=== PATIENT | male | born 1950 | race Caucasian/White ===

== ENCOUNTER 2018-08-30 20:17 | Emergency (ER) | payer MEDICARE ==
[2018-08-30] MEDS ORDERED: BABY ASPIRIN 81 MG CHEW PO ONE (20:34)
[2018-08-30] MEDS ORDERED: BABY ASPIRIN 81 MG CHEW ONE (20:38)
[2018-08-30 20:44] LABS: Hematocrit 37.6 % (42-50); Mean Corpuscular Hemoglobin 36.3 pg (26-32); Mean Corpuscular Hgb Concent. 34.6 g/dl (32-36); Mean Platelet Volume 10.4 fl (6-9.5); Platelet Count 183 K/mm3 (150-450); Red Blood Count 3.58 M/mm3 (4.1-5.6); Red Cell Distribution Width 14.4 % (11.5-14.0); White Blood Count 6.2 K/mm3 (4.0-10.5)
[2018-08-30 21:00] LABS: ALBUMIN 3.7 g/dL (3.5-5.0); ALKALINE PHOSPHATASE 109 U/L (38-126); AMYLASE 84 U/L (30-110); ANION GAP 13.7 MEQ/L (5-15); BLOOD UREA NITROGEN 12 mg/dL (9-20); CHLORIDE 101 mmol/L (98-107); Calcium 8.8 mg/dL (8.4-10.2); Carbon Dioxide 27 mmol/L (22-30); Creatinine 1 0.92 mg/dL (0.66-1.25); Glucose 107 mg/dL (74-106); LIPASE 163 U/L (23-300); Potassium 3.7 mmol/L (3.5-5.1); SGOT/AST 18 U/L (17-59); SGPT/ALT 20 U/L (0-50); SODIUM 137 mmol/L (137-145); Total Protein 6.9 g/dL (6.3-8.2)
--- NOTE | 2018-08-30 21:01 | ERPHSYRPT ---
- History of Present Illness Time Seen by Provider: 08/30/18 20:51 Historian: patient Exam Limitations: no limitations Patient Subjective Stated Complaint: Pt c/o substernal/epigastric cp x 2 days, worse when coughing and "getting up". denies cardiac hx. denies radiation of pain, denies nausea, dizziness, and diaphoresis Triage Nursing Assessment: [place]/warm/dry, resp easy, a&ox4, steady gait, ambulated to room per self without difficulty, no distress noted at this time, ekg done. Physician History: This is a 68-year-old white male with history of angina, asthma, high blood pressure, GERD, prostate problems, ulcerative colitis. Patient arrives with complaint of pain in the substernal region low in the substernal region symptoms going on for 2 days described as a pressure he states it is worse with coughing. He denies any nausea vomiting he is not short of breath he has no fevers she has not been otherwise ill. He does states that he had a strain in his abdominal many years ago and was questioning whether this is causing it but he is worried about his heart. 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, colitis, sinus surgery patient has had a cholecystectomy Social history denies tobacco alcohol or illicit drug use Timing/Duration: day(s) (2 days) Activities at Onset: none Quality: pressure Location: substernal Chest Pain Radiation: back Severity of Pain-Max: moderate Severity of Pain-Current: mild Modifying Factors: Improves With: coughing, other (worse with coughing) Associated Symptoms: No nausea, No vomiting, No palpitations, No heartburn, No abdominal pain, No shortness of breath, No cough, No hurts to breathe, No diaphoresis, No chills, No fever, No fatigue, No weakness, No swelling/lump in chest, No syncope, No rash, No headache, No dizziness, No edema, No back pain Prior Chest Pain/Cardiac Workup: cardiac cath (cardiac catheter 2016 patient states good catheterization) Nitro Today/Relief: no nitro taken today Aspirin Treatment Today: 81 mg x 4, provided by ED Allergies/Adverse Reactions: Beejnjg-[id number]-Yfg Reductase Inhibitor Allergy (Verified 08/30/18 20:25) Home Medications: Cyclobenzaprine HCl 10 mg [Flexeril 10 MG] 10 mg PO HS PRN 08/30/18 [ History] Lisinopril 10 mg [Zestril 10 MG] 1 tab PO DAILY 08/30/18 [History] Omeprazole 1 cap PO DAILY 08/30/18 [History] Potassium Chloride [Klor-Con M20] 1 tab PO BID 08/30/18 [History] Prednisone 10 mg [Deltasone 10 mg] 1 tab PO DAILY 08/30/18 [History] Tamsulosin HCl 1 cap PO DAILY 08/30/18 [History] Verapamil HCl [Verapamil Sr] 1 cap PO BID 08/30/18 [History] azaTHIOprine [Azathioprine] 4 tab PO DAILY 08/30/18 [History] Hx Tetanus, Diphtheria Vaccination/Date Given: Yes Hx Influenza Vaccination/Date Given: Yes Hx Pneumococcal Vaccination/Date Given: Yes Immunizations Up to Date: Yes - Review of Systems Constitutional: No Fever, No Chills Eyes: No Symptoms Ears, Nose, & Throat: No Symptoms Respiratory: No Cough, No Dyspnea Cardiac: Chest Pain, No Edema, No Palpitations, No Orthopnea, No PND Abdominal/Gastrointestinal: No Abdominal Pain, No Nausea, No Vomiting, No Diarrhea Genitourinary Symptoms: No Dysuria Musculoskeletal: No Back Pain, No Neck Pain Skin: No Rash Neurological: No Dizziness, No Focal Weakness, No Sensory Changes Psychological: No Symptoms Endocrine: No Symptoms All Other Systems: Reviewed and Negative - Past Medical History Pertinent Past Medical History: Yes Cardiac History: Angina, Hypertension Respiratory History: Asthma GI Medical History: GERD, Other Male Reproductive Disorders: Prostate Problems Other Medical History: ulcerative colitis - Past Surgical History Past Surgical History: Yes Cardiac: Cardiac Catheterization Gastrointestinal: Hemorrhoidectomy, Other Genitourinary: Kidney Surgery Other Surgical History: COLITIS,SINUS - Social History Smoking Status: Never smoker Exposure to second hand smoke: No Drug Use: none Patient Lives Alone: No - Nursing Vital Signs Nursing Vital Signs: Initial Vital Signs Temperature 97.9 F 08/30/18 20:25 Pulse Rate 88 08/30/18 20:25 Respiratory Rate 18 08/30/18 20:25 Blood Pressure 134/79 08/30/18 20:25 O2 Sat by Pulse Oximetry 97 08/30/18 20:25 Pain Scale Pain Intensity 7 - Physical Exam General Appearance: no apparent distress, alert Eye Exam: PERRL/EOMI, eyes nml inspection Ears, Nose, Throat Exam: normal ENT inspection, moist mucous membranes Neck Exam: normal inspection, non-tender, supple, full range of motion Respiratory Exam: normal breath sounds, lungs clear, No respiratory distress Cardiovascular Exam: regular rate/rhythm, normal heart sounds, capillary refill <2 sec Gastrointestinal/Abdomen Exam: soft, No tenderness, No mass Back Exam: normal inspection, No CVA tenderness, No vertebral tenderness Extremity Exam: normal inspection, normal range of motion Neurologic Exam: alert, oriented x 3, cooperative, correctional captain II-XII nml as tested, normal mood/affect, sensation nml, No motor deficits SpO2 Interpretation: normal (97%) SpO2: 97 - Course Nursing assessment & vital signs reviewed: Yes EKG Interpreted by Me: RATE (83bpm), Sinus Rhythm, NORMAL AXIS, Other (EKG: Sinus rhythm, 83 bpm, normal axis, no acute ST or T wave changes noted) - Radiology Exams Chest X-ray Interpretation: Interpreted by me (chest x-ray: No acute disease process noted) - CT Exams Chest CT Interpretation: Tele-radiologist Report (CTA chest: Impression: 1. Negative for pulmonary embolus. 2. Cholecystectomy 3. Coronary artery atherosclerotic calcifications. 4. Multilevel chronic compression fractures in the spine. 5. Right kidney 4.8 cm heterogenous mass concerning for malignancy,) Ordered Tests: Active Orders 24 hr Category Date Time Status Steamfitter STAT Care 08/30/18 20:35 Active EKG-ER Only STAT Care 08/30/18 20:34 Active IV Insertion STAT Care 08/30/18 20:34 Active Pulse Oximetry (ED) STAT Care 08/30/18 20:34 Active CHEST 1 VIEW (PORTABLE) Stat Exams 08/30/18 20:35 Taken CHEST WITH CONTRAST [CT] Stat Exams 08/30/18 22:11 Taken AMYLASE Stat Lab 08/30/18 20:30 Completed CBC W DIFF Stat Lab 08/30/18 20:30 Completed CMP Stat Lab 08/30/18 20:30 Completed D-DIMER QUANTITATION Stat Lab 08/30/18 20:30 Completed LIPASE Stat Lab 08/30/18 20:30 Completed Manual Differential NC Stat Lab 08/30/18 20:30 Completed PROTIME WITH INR Stat Lab 08/30/18 20:30 Completed PTT Stat Lab 08/30/18 20:30 Completed TROPONIN Q3H Lab 08/30/18 20:30 Completed TROPONIN Q3H Lab 08/30/18 23:55 Completed TROPONIN Q3H Lab 08/31/18 02:45 Ordered TROPONIN Q3H Lab 08/31/18 05:45 Ordered TROPONIN Q3H Lab 08/31/18 08:45 Ordered Medication Summary Discontinued Medications Generic Name Dose Route Start Last Admin Trade Name Freq PRN Reason Stop Dose Admin Aspirin 324 mg 08/30/18 20:34 08/30/18 20:39 Baby Aspirin 81 Mg Chew PO 08/30/18 20:35 324 mg STAT ONE Administration Aspirin Confirm 08/30/18 20:38 Baby Aspirin 81 Mg Chew Administered 08/30/18 20:39 Dose 324 mg .ROUTE .[employer] ONE Lab/Rad Data: Laboratory Result Diagrams 08/30/18 20:30 08/30/18 20:30 Laboratory Results 08/30/18 08/30/18 08/30/18 Range/Units 23:55 20:30 20:30 WBC (4.0-10.5) K/mm3 RBC (4.1-5.6) M/mm3 Hgb (12.5-18.0) gm/dl Hct (42-50) % MCV (78-100) fl MCH (26-32) pg MCHC (32-36) g/dl RDW (11.5-14.0) % Plt Count (150-450) K/mm3 MPV (6-9.5) fl PT (8.83-12.87) SECONDS INR (0.8-3.0) APTT (24.1-36.1) SECONDS D-Dimer (215-500) ng/mL Sodium (137-145) mmol/L Potassium (3.5-5.1) mmol/L Chloride (98-107) mmol/L Carbon Dioxide (22-30) mmol/L Anion Gap (5-15) MEQ/L BUN (9-20) mg/dL Creatinine (0.66-1.25) mg/dL Estimated GFR ML/MIN Glucose (74-106) mg/dL Calcium (8.4-10.2) mg/dL Total Bilirubin (0.2-1.3) mg/dL AST (17-59) U/L ALT (0-50) U/L Alkaline Phosphatase (38-126) U/L Troponin I < 0.012 < 0.012 (0.000-0.034) ng/mL Serum Total Protein (6.3-8.2) g/dL Albumin (3.5-5.0) g/dL Amylase 84 (30-110) U/L Lipase 163 (23-300) U/L 08/30/18 08/30/18 08/30/18 Range/Units 20:30 20:30 20:30 WBC 6.2 (4.0-10.5) K/mm3 RBC 3.58 L (4.1-5.6) M/mm3 Hgb 13.0 (12.5-18.0) gm/dl Hct 37.6 L (42-50) % MCV 105.0 H (78-100) fl MCH 36.3 H (26-32) pg MCHC 34.6 (32-36) g/dl RDW 14.4 H (11.5-14.0) % Plt Count 183 (150-450) K/mm3 MPV 10.4 H (6-9.5) fl PT 11.4 (8.83-12.87) SECONDS INR 0.98 (0.8-3.0) APTT 24.5 (24.1-36.1) SECONDS D-Dimer 2179 H* (215-500) ng/mL Sodium 137 (137-145) mmol/L Potassium 3.7 (3.5-5.1) mmol/L Chloride 101 (98-107) mmol/L Carbon Dioxide 27 (22-30) mmol/L Anion Gap 13.7 (5-15) MEQ/L BUN 12 (9-20) mg/dL Creatinine 0.92 (0.66-1.25) mg/dL Estimated GFR > 60.0 ML/MIN Glucose 107 H (74-106) mg/dL Calcium 8.8 (8.4-10.2) mg/dL Total Bilirubin 0.90 (0.2-1.3) mg/dL AST 18 (17-59) U/L ALT 20 (0-50) U/L Alkaline Phosphatase 109 (38-126) U/L Troponin I (0.000-0.034) ng/mL Serum Total Protein 6.9 (6.3-8.2) g/dL Albumin 3.7 (3.5-5.0) g/dL Amylase (30-110) U/L Lipase (23-300) U/L - Progress Progress: improved Air Movement: fair Progress Note: 08/31/18 00:44 68-year-old white male arrives with complaint of substernal chest pain off and on for 2 days he states that he felt as if perhaps he was just having problems from her previous abdominal injury. He really is not complaining of shortness of breath no nausea no vomiting He states he had a essentially normal catheter a couple years ago Patient with EKG remarkable for sinus rhythm, 83 bpm, normal axis, no acute ST- T wave changes are noted Patient's troponin has been normal 2 patient is actually feeling better he was given aspirin 324 mg orally. Chest x-ray no acute disease process noted chemistry CBC essentially normal unfortunately d-dimer was elevated CTA of the chest was obtained, impression 1. Negative pulmonary embolism 2. Cholecystectomy 3. Coronary artery arthrosclerotic calcifications 4. Multilevel chronic compression fractures in the spine 5. Right kidney with a 4.8 cm heterogenous mass concerning for malignancy. Patient is in no acute distress. He he states he is feeling much better just after receiving lab work and aspirin. I've discussed the patient's mass with the patient on his right kidney he states that he will follow-up with Dr. Tim Resendiz I did state that he has to do this or follow-up with a renal physician. I will also advise patient follow-up with Dr. Resendiz as follow-up for his chest pain. - Departure Departure Disposition: Home Clinical Impression: Mass of right kidney Chest pain Qualifiers: Chest pain type: unspecified Qualified Code(s): R07.9 - Chest pain, unspecified Condition: Fair Critical Care Time: No Referrals: DEISY RESENDIZ [Primary Care Provider] - Additional Instructions: Return home. Rest. Contact Dr. Resendiz for follow-up. You will need to follow-up with Dr. Resendiz with your history of chest pain he had normal troponins at this time you do not have evidence of a pulmonary embolism. Unfortunately, however, you do have a mass in the right kidney and it is important that you follow this up either with Dr. Resendiz or with a renal physician. You may return for acute distress or severe symptoms or for any problems.
[2018-08-30 21:23] LABS: INR 0.98 (0.8-3.0); PROTIME 11.4 SECONDS (8.83-12.87)
[2018-08-30 21:26] LABS: PTT 24.5 SECONDS (24.1-36.1)
[2018-08-30 23:47] VITALS: O2SAT 97
[2018-08-31 01:00] VITALS: BP 127/87; PULSE 89
[2018-08-31 01:47] LABS: Eosinophil 2 % (0.00-3.0); Lymphocytes 14 % (24-44); Monocyte 6 % (0.0-12.0); Neutrophils 78 % (36.-66.); Platelet Estimate NORMAL (NORMAL); Total Cells Counted 100
--- NOTE | 2018-08-31 08:47 | XRAY ---
Indication: Chest pain. Comparison: November 03, 2012. Portable chest again demonstrates bibasilar fibrosis/scarring. No focal infiltrate, consolidation, or large effusion. Heart is not enlarged. Bony thorax intact again with osteopenia and degenerative changes. Impression: Nonacute chest with chronic features.
--- NOTE | 2018-08-31 08:47 | XRAY ---
Indication: Substernal chest pain. Elevated d-dimer. Multiple contiguous axial images obtained through the chest using 80 cc Isovue 300 contrast and PE protocol. Comparison: September 28, 2013. There is satisfactory opacification of the pulmonary arteries to include the lobar and segmental branches. No filling defect or pulmonary embolus. Heart is not enlarged. Aorta is normal in course and caliber. No pathologic mediastinal/hilar lymphadenopathy. Examination of the lung parenchyma again hyperinflated. New mild bibasilar atelectasis/scarring. No suspicious pulmonary mass, infiltrate, or effusion. Bony thorax demonstrates osteopenia and mild multilevel degenerative spondylosis. Also old nonunited left 8 rib fracture and old multilevel spinal compression fractures, greatest T8 level. Limited upper abdomen demonstrates fatty liver, cholecystectomy, and right renal cysts, largest 1.5 cm. Right kidney also demonstrates 4.8 x 3.6 cm incompletely visualized mid pole mass with heterogeneous enhancement worrisome for malignancy. Impression: 1. Negative pulmonary embolus. Scattered atelectasis/scarring but no acute cardiopulmonary abnormalities. 2. Multilevel old compression fractures and old nonunited left 8 rib fracture. 3. Incompletely visualized right renal mass worrisome for malignancy. 4. Incidental fatty liver and right renal cysts. Comment: Preliminary interpretation was made by [facility]. No critical discrepancy. CT DI 19.66
== END 2018-08-31 00:59 | disposition home or self-care (01) ==
LOC: ED 20:17
DX: N28.89 Other specified disorders of kidney and ureter (principal); R07.9 Chest pain, unspecified
CPT/HCPCS: 36000; 36415; 71045; 71260; 80053; 82150; 83690; 84484; 85025; 85379; 85610; 85730; 93005; 93041; 99284; A9270-GY

== ENCOUNTER 2019-07-10 16:19 | Emergency (ER) | payer MEDICARE ==
[2019-07-10] MEDS ORDERED: MORPHINE SULFATE 4 MG INJ ONE ×2 (17:00→18:42)
[2019-07-10] MEDS: MORPHINE SULFATE 4 MG INJ IV ONE ×2 (17:02→18:43)
--- NOTE | 2019-07-10 17:07 | ERPHSYRPT ---
- History of Present Illness Time Seen by Provider: 07/10/19 16:40 Historian: patient Exam Limitations: no limitations Patient Subjective Stated Complaint: c/o bilateral rib pain from coughing. states he has had bronchitis for a week. took levaquin for five days. had cxr at [facility] wednesday and states he doesn't have pneumonia. states he is not coughing anything up at this time. has taken vicodin without relief. Triage Nursing Assessment: ambulatated to room guarding ribs. occasional dry cough noted. breath sounds clear but unable to take a deep breath. Physician History: Patient is a 69-year-old male presents to our ED with complaints of bilateral rib pain. Patient was seen in urgent care last week. Patient was diagnosed with bronchitis. Patient was started on Levaquin. Patient states that he continues to cough. Patient attributing his rib pain to persistent coughing. Pain described as an ache that is localized in both lowerribs. Pain reproduced with movement and palpation. Pain improved with rest. No trauma. No fever. No nausea or vomiting. No diaphoresis. Symptoms are moderate intensity. Timing/Duration: week(s) (2 weeks), improved Activities at Onset: none Quality: aching Location: other (Bilateral ribs and upper back.) Chest Pain Radiation: no radiation, back Severity of Pain-Max: moderate Severity of Pain-Current: moderate Modifying Factors: Improves With: breathing, coughing Associated Symptoms: shortness of breath, cough, hurts to breathe, No nausea, No palpitations, No heartburn, No abdominal pain, No diaphoresis, No chills, No fever, No fatigue, No weakness, No swelling/lump in chest, No dizziness Aspirin Treatment Today: no aspirin today Allergies/Adverse Reactions: Docwpfj-Sgk-Gdt Reductase Inhibitor Allergy (Verified 07/10/19 16:55) Home Medications: Lisinopril 10 mg [Zestril 10 MG] 1 tab PO DAILY 08/30/18 [History] Omeprazole 1 cap PO DAILY 08/30/18 [History] Potassium Chloride [Klor-Con M20] 1 tab PO BID 08/30/18 [History] Prednisone 10 mg [Deltasone 10 mg] 1 tab PO DAILY 08/30/18 [History] Tamsulosin HCl 1 cap PO DAILY 08/30/18 [History] Verapamil HCl [Verapamil Sr] 120 mg PO BID 08/30/18 [History] azaTHIOprine [Azathioprine] 200 mg PO DAILY 08/30/18 [History] Albuterol Sulfate [Albuterol Sulfate Hfa] 7 gm IH UD 07/10/19 [History] Aspirin EC 325 mg [Ecotrin 325 MG] 325 mg PO DAILY 07/10/19 [History] Bumetanide 1 mg PO DAILY 07/10/19 [History] Fluticasone Propion/Salmeterol [Wixela 500-50 Inhub] 1 puff IH BID 07/10/19 [ History] Fluticasone/Vilanterol [Breo Ellipta 200-25 Mcg INH] 1 each IH DAILY 07/10/19 [ History] Hydrocodone Bit/Acetaminophen [Hydrocodon-Acetaminophen 5-325] 1 each PO Q4HPRN PRN 07/10/19 [History] Methocarbamol 500 mg [Robaxin 500 MG] 500 mg PO DAILY 07/10/19 [History] Turmeric Root Extract [Turmeric] 1 ea PO DAILY 07/10/19 [History] Hx Tetanus, Diphtheria Vaccination/Date Given: No Hx Influenza Vaccination/Date Given: Yes Hx Pneumococcal Vaccination/Date Given: Yes - Review of Systems Constitutional: No Fever, No Chills Eyes: No Symptoms Ears, Nose, & Throat: No Symptoms Respiratory: Cough, Dyspnea on Exertion (SALEH), No Dyspnea Cardiac: No Symptoms, Chest Pain, No Edema, No Syncope Abdominal/Gastrointestinal: No Abdominal Pain, No Nausea, No Vomiting, No Diarrhea Genitourinary Symptoms: No Dysuria Musculoskeletal: No Symptoms, Back Pain, No Neck Pain Skin: No Symptoms, No Rash Neurological: No Symptoms, No Dizziness, No Focal Weakness, No Sensory Changes Psychological: No Symptoms Endocrine: No Symptoms Hematologic/Lymphatic: No Symptoms Immunological/Allergic: No Symptoms All Other Systems: Reviewed and Negative - Past Medical History Pertinent Past Medical History: Yes Cardiac History: Angina, Hypertension Respiratory History: Asthma, COPD GI Medical History: GERD, Other Male Reproductive Disorders: Prostate Problems Other Medical History: ulcerative colitis - Past Surgical History Past Surgical History: Yes Cardiac: Cardiac Catheterization Gastrointestinal: Hemorrhoidectomy, Other Genitourinary: Kidney Surgery Other Surgical History: COLITIS,SINUS - Social History Smoking Status: Never smoker Exposure to second hand smoke: No Drug Use: none Patient Lives Alone: No - Nursing Vital Signs Nursing Vital Signs: Initial Vital Signs Temperature 97.7 F 07/10/19 16:32 Pulse Rate 98 H 07/10/19 16:32 Respiratory Rate 26 H 07/10/19 16:32 Blood Pressure 118/98 07/10/19 16:32 O2 Sat by Pulse Oximetry 98 07/10/19 16:32 Pain Scale Pain Intensity 7 - Physical Exam General Appearance: no apparent distress, alert Eye Exam: PERRL/EOMI, eyes nml inspection Ears, Nose, Throat Exam: normal ENT inspection, moist mucous membranes Neck Exam: normal inspection, non-tender, supple, full range of motion Respiratory Exam: normal breath sounds, chest tenderness, lungs clear, No respiratory distress Cardiovascular Exam: regular rate/rhythm, normal heart sounds Gastrointestinal/Abdomen Exam: soft, No tenderness, No mass Back Exam: normal inspection, No CVA tenderness, No vertebral tenderness Extremity Exam: normal inspection, normal range of motion Neurologic Exam: alert, oriented x 3, cooperative, normal mood/affect, sensation nml, No motor deficits Skin Exam: normal color, warm, dry SpO2 Interpretation: normal SpO2: 98 O2 Delivery: Room Air - Course Nursing assessment & vital signs reviewed: Yes EKG Interpreted by Me: RATE, Sinus Rhythm, Left [place] Deviation - Radiology Exams Chest X-ray Interpretation: Teleradiologist Report (Osteopenia, old left eighth rib fracture, old right 4 5 rib fracture, multilevel thoracic lumbar compression fractures, right hemidiaphragm elevated no acute findings.) Ordered Tests: Active Orders 24 hr Category Date Time Status Ice Cream Shop Associate STAT Care 07/10/19 16:55 Active IV Insertion STAT Care 07/10/19 16:54 Active Oxygen-ED Only Nasal Cannula 2 lpm Care 07/10/19 17:06 Active Pulse Oximetry (ED) STAT Care 07/10/19 16:54 Active RIBS BILATERAL INCLUDE PA CXR Routine Exams 07/10/19 17:57 Taken CBC W DIFF Stat Lab 07/10/19 17:00 Completed CMP Stat Lab 07/10/19 17:00 Completed D-DIMER QUANTITATIVE Stat Lab 07/10/19 17:00 Completed Manual Differential NC Stat Lab 07/10/19 17:00 Completed TROPONIN Q3H Lab 07/10/19 17:00 Completed TROPONIN Q3H Lab 07/10/19 20:00 Ordered TROPONIN Q3H Lab 07/10/19 23:00 Ordered TROPONIN Q3H Lab 07/11/19 02:00 Ordered TROPONIN Q3H Lab 07/11/19 05:00 Ordered Urine Triage Profile Stat Lab 07/10/19 16:55 Uncollected Transfer Order Routine Transfer 07/10/19 Ordered Medication Summary Discontinued Medications Generic Name Dose Route Start Last Admin Trade Name Freq PRN Reason Stop Dose Admin Sodium Chloride 1,000 mls @ 999 mls/hr 07/10/19 17:36 07/10/19 17:43 Sodium Chloride 0.9% 1000 Ml IV 07/10/19 18:36 999 mls/hr .Q1H1M STA Administration Sodium Chloride Confirm 07/10/19 17:41 Sodium Chloride 0.9% 1000 Ml Administered 07/10/19 17:42 Dose 1,000 mls @ ud .ROUTE .[employer] ONE Morphine Sulfate 4 mg 07/10/19 16:56 07/10/19 17:02 Morphine Sulfate 4 Mg Inj IV 07/10/19 16:57 4 mg STAT ONE Administration Morphine Sulfate Confirm 07/10/19 17:00 Morphine Sulfate 4 Mg Inj Administered 07/10/19 17:01 Dose 4 mg .ROUTE .STK-MED ONE Lab/Rad Data: Laboratory Result Diagrams 07/10/19 17:00 07/10/19 17:00 Laboratory Results 07/10/19 07/10/19 07/10/19 Range/Units 17:00 17:00 17:00 WBC (4.0-10.5) K/mm3 RBC (4.1-5.6) M/mm3 Hgb (12.5-18.0) gm/dl Hct (42-50) % MCV (78-100) fl MCH (26-32) pg MCHC (32-36) g/dl RDW (11.5-14.0) % Plt Count (150-450) K/mm3 MPV (7.5-11.0) fl D-Dimer 4170 H* (215-500) ng/mL Sodium 139 (137-145) mmol/L Potassium 4.1 (3.5-5.1) mmol/L Chloride 102 (98-107) mmol/L Carbon Dioxide 24 (22-30) mmol/L Anion Gap 17.4 H (5-15) MEQ/L BUN 27 H (9-20) mg/dL Creatinine 1.71 H (0.66-1.25) mg/dL Estimated GFR 42.5 ML/MIN Glucose 97 (74-106) mg/dL Calcium 9.9 (8.4-10.2) mg/dL Total Bilirubin 1.20 (0.2-1.3) mg/dL AST 29 (17-59) U/L ALT 18 (0-50) U/L Alkaline Phosphatase 92 (38-126) U/L Troponin I < 0.012 (0.000-0.034) ng/mL Serum Total Protein 8.7 H (6.3-8.2) g/dL Albumin 4.8 (3.5-5.0) g/dL 07/10/19 Range/Units 17:00 WBC 9.9 (4.0-10.5) K/mm3 RBC 4.53 (4.1-5.6) M/mm3 Hgb 14.4 (12.5-18.0) gm/dl Hct 45.4 (42-50) % MCV 100.2 H (78-100) fl MCH 31.8 (26-32) pg MCHC 31.7 L (32-36) g/dl RDW 13.9 (11.5-14.0) % Plt Count 218 (150-450) K/mm3 MPV 10.2 (7.5-11.0) fl D-Dimer (215-500) ng/mL Sodium (137-145) mmol/L Potassium (3.5-5.1) mmol/L Chloride (98-107) mmol/L Carbon Dioxide (22-30) mmol/L Anion Gap (5-15) MEQ/L BUN (9-20) mg/dL Creatinine (0.66-1.25) mg/dL Estimated GFR ML/MIN Glucose (74-106) mg/dL Calcium (8.4-10.2) mg/dL Total Bilirubin (0.2-1.3) mg/dL AST (17-59) U/L ALT (0-50) U/L Alkaline Phosphatase (38-126) U/L Troponin I (0.000-0.034) ng/mL Serum Total Protein (6.3-8.2) g/dL Albumin (3.5-5.0) g/dL - Progress Progress: improved Air Movement: good Progress Note: 07/10/19 18:24 Patient reassessed. Pain improved. D-dimer elevated at 4200. BUN and creatinine are both elevated displaying acute renal injury. This is probably due to dehydration. Patient states he has not been drinking water or maintaining good hydration as of lately. Therefore patient is not a candidate for CTA chest. Patient will require VQ scan. The VQ scan is not immediately available in our ED. It is not expected to be available for the next couple days. We will anticoagulate patient. Patient will then be transferred to [facility] for further evaluation and treatment. Patient hydrated with normal saline. Plan of care discussed with patient. He agrees to transfer to [facility] for further evaluation and treatment. Case discussed with Dr. Fitch ER physician at [facility] who accepts transfer. Blood Culture(s) Obtained: No Antibiotics given: No Counseled pt/family regarding: lab results, diagnosis, rad results - Departure Departure Disposition: Home, Transfer Clinical Impression: Elevated d-dimer, Dehydration, Acute renal injury, Chest pain Condition: Stable Critical Care Time: No Referrals: DEISY RESENDIZ [Primary Care Provider] -
[2019-07-10 17:20] LABS: Hematocrit 45.4 % (42-50); Hemoglobin 14.4 gm/dl (12.5-18.0); Mean Cell Volume 100.2 fl (78-100); Mean Corpuscular Hemoglobin 31.8 pg (26-32); Mean Corpuscular Hgb Concent. 31.7 g/dl (32-36); Mean Platelet Volume 10.2 fl (7.5-11.0); Platelet Count 218 K/mm3 (150-450); Red Blood Count 4.53 M/mm3 (4.1-5.6); Red Cell Distribution Width 13.9 % (11.5-14.0); White Blood Count 9.9 K/mm3 (4.0-10.5)
[2019-07-10 17:28] LABS: ALBUMIN 4.8 g/dL (3.5-5.0); ANION GAP 17.4 MEQ/L (5-15); BILIRUBIN,TOTAL 1.2 mg/dL (0.2-1.3); Calcium 9.9 mg/dL (8.4-10.2); Creatinine 1 1.71 mg/dL (0.66-1.25); Potassium 4.1 mmol/L (3.5-5.1); Total Protein 8.7 g/dL (6.3-8.2)
[2019-07-10] MEDS ORDERED: Sodium Chloride 0.9% 1000 ML 1,000 ML ONE (17:41)
[2019-07-10] MEDS: Sodium Chloride 0.9% 1000 ML 1,000 ML IV STA (17:43)
[2019-07-10 18:40] VITALS: BP 137/87; PULSE 96
[2019-07-10 18:41] VITALS: O2SAT 98
[2019-07-10] MEDS ORDERED: ENOXAPARIN SODIUM SQ ONE (18:42)
[2019-07-10] MEDS: ENOXAPARIN SODIUM SQ ONE (18:43)
[2019-07-10 19:12] LABS: Amphetamine,Urine NEGATIVE (NEGATIVE); Barbiturate,Urine NEGATIVE (NEGATIVE); Benzodiazepine,Urine NEGATIVE (NEGATIVE); Cocaine,Urine NEGATIVE (NEGATIVE); Methadone,Urine NEGATIVE (NEGATIVE); Opiate,Urine POSITIVE (NEGATIVE); PCP,Urine NEGATIVE (NEGATIVE); THC,Urine NEGATIVE (NEGATIVE)
[2019-07-11 05:28] LABS: Platelet Estimate NORMAL (NORMAL); Total Cells Counted 100
[2019-07-11 05:38] LABS: Lymphocytes 15 % (24-44); Neutrophils 78 % (36.-66.)
[2019-07-11 05:39] LABS: BAND 3 % (0.0-2.0); Monocyte 4 % (0.0-12.0)
--- NOTE | 2019-07-11 08:35 | XRAY ---
Indication: Right lower rib pain. Cough. Comparison: None PA chest and 2 views of the left and right ribs demonstrates osteopenia, old left 8 rib fracture, old right 4/5 rib fractures, multilevel thoracolumbar compression fractures, right hemidiaphragm elevation with adjacent atelectasis, and cardiomegaly. No other bony, articular, or soft tissue abnormalities.
== END 2019-07-10 19:15 | disposition short-term general hospital (02) ==
LOC: ED 16:19
DX: R79.89 Other specified abnormal findings of blood chemistry (principal); E86.0 Dehydration; N17.9 Acute kidney failure, unspecified; R07.9 Chest pain, unspecified; I10 Essential (primary) hypertension; J44.9 Chronic obstructive pulmonary disease, unspecified; J45.909 Unspecified asthma, uncomplicated
CPT/HCPCS: 36000; 36415; 71111; 80053; 80307; 84484; 85025; 85379; 93041; 94760; 96372; 96374; 96376; 99285; J1650; J2270

== ENCOUNTER 2023-03-16 15:26 | Emergency (ER) | payer MEDICARE ==
[2023-03-16] MEDS ORDERED: Pepcid 20 MG VIAL IV ONE ×2 (15:38→15:40)
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
[2023-03-16] MEDS ORDERED: MEFOXIN 1 Gm/ D5W 50 Ml** 1 G/50 ML ML IV STA (15:54)
[2023-03-16 16:36] LABS: Absolute Neutrophil Ct (ANC) 1.48 x10^3/uL (1.4-6.9); Basophil (Absolute #) 0 x10^3/uL (0-0.4); Eosinophil % 0.6 % (0.00-5.0); Eosinophil (Absolute #) 0.02 x10^3/uL (0-0.5); Hematocrit 44.9 % (42-50); IMMATURE GRAN # 0.01 x10^3u/L (0.00-0.03); IMMATURE GRAN % 0.3 % (0.00-0.4); Lymphocyte (Absolute #) 1.74 x10^3/uL (1.0-4.6); Mean Corpuscular Hemoglobin 34.4 pg (26-32); Mean Corpuscular Hgb Concent. 33.4 g/dL (32-36); Mean Platelet Volume 10.9 fL (7.5-11.0); Monocyte (Absolute #) 0.16 x10^3/uL (0.0-1.3); Monocytes % 4.7 % (0.0-12.0); NUCLEATED RBC # 0.02 x10^3u/L (0.00-0.01); NUCLEATED RBC % 0.6 % (0.00-0.1); Neutrophil % 43.4 % (36.0-66.0); Platelet Count 289 x10^3/uL (150-450); Red Blood Count 4.36 x10^6/uL (4.1-5.6); Red Cell Distribution Width 13.1 % (11.5-14.0); White Blood Count 3.4 x10^3/uL (4.0-10.5)
[2023-03-16 16:50] LABS: ALBUMIN 4.5 g/dL (3.5-5.0); ANION GAP 13.3 MEQ/L (5-15); BILIRUBIN,TOTAL 0.8 mg/dL (0.2-1.3); Calcium 8.8 mg/dL (8.4-10.2); Creatinine 1 1.25 mg/dL (0.66-1.25); EST GLOMERULAR FILTRATION RATE 61.2 ML/MIN; Potassium 3.8 mmol/L (3.5-5.1); Total Protein 7.9 g/dL (6.3-8.2)
[2023-03-16 18:02] VITALS: O2SAT 100
[2023-03-16 18:17] VITALS: BP 112/72; PULSE 70; TEMP 97.6
== END 2023-03-16 18:16 | disposition home or self-care (01) ==
LOC: ED 15:26
DX: T78.40XA Allergy, unspecified, initial encounter (principal); R61 Generalized hyperhidrosis; I95.9 Hypotension, unspecified; L29.9 Pruritus, unspecified; R11.10 Vomiting, unspecified; I10 Essential (primary) hypertension; Z79.899 Other long term (current) drug therapy
CPT/HCPCS: 36415; 80053; 84484; 85025; 96374; 99283

== ENCOUNTER 2024-09-16 10:38 | Emergency (ER) | payer MEDICARE ==
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
[2024-09-16 11:12] LABS: Appearance Clear (Clear); Bilirubin Negative (Negative); Blood Negative (Negative); Glucose, Urine Negative (Negative); Ketones Negative (Negative); Leukocyte Esterase Negative (Negative); Nitrite Negative (Negative); Ph 7.5 (4.6-8.0); Protein,Urine Dip Negative (Negative); Specific Gravity <=1.005 (1.005-1.030); Urobilinogen 0.2 mg/dL (0.2)
[2024-09-16 11:22] VITALS: TEMP 98
[2024-09-16 11:36] LABS: Absolute Neutrophil Ct (ANC) 6.05 x10^3/uL (1.78-5.38); BASOPHIL % 0.3 % (0.2-1.2); Basophil (Absolute #) 0.02 x10^3/uL (0.01-0.08); Eosinophil % 0.1 % (0.8-7.0); Eosinophil (Absolute #) 0.01 x10^3/uL (0.04-0.54); Hematocrit 39.6 % (40.1-51.0); Hemoglobin 13.4 g/dL (13.7-17.5); IMMATURE GRAN # 0.08 x10^3u/L (0.001-0.031); IMMATURE GRAN % 1.2 % (0.001-0.429); Lymphocyte (Absolute #) 0.34 x10^3/uL (1.32-3.57); Mean Corpuscular Hemoglobin 33.2 pg (25.7-32.2); Mean Corpuscular Hgb Concent. 33.8 g/dL (32.3-36.5); Mean Platelet Volume 10.1 fL (9.4-12.4); Monocyte (Absolute #) 0.25 x10^3/uL (0.30-0.82); Monocytes % 3.7 % (5.3-12.2); Neutrophil % 89.7 % (34.0-67.9); Platelet Count 208 x10^3/uL (163-337); Red Blood Count 4.04 x10^6/uL (4.63-6.08); Red Cell Distribution Width 13.2 % (11.6-14.4); White Blood Count 6.8 x10^3/uL (4.23-9.07)
[2024-09-16 11:52] LABS: ALBUMIN 4.4 g/dL (3.5-5.0); ANION GAP 18.2 MEQ/L (5-15); BILIRUBIN,TOTAL 1.2 mg/dL (0.2-1.3); Calcium 9.2 mg/dL (8.4-10.2); Creatinine 1 1.04 mg/dL (0.66-1.25); EST GLOMERULAR FILTRATION RATE 75.8 ML/MIN; Potassium 3.7 mmol/L (3.5-5.1); Total Protein 7.5 g/dL (6.3-8.2)
[2024-09-16 12:07] LABS: Bacteria None Seen /HPF (None Seen); Epithelial Cells None Seen /HPF (None Seen); Hyaline Casts NONE SEEN /LPF (0-2); RBC 0-2 /HPF (0-5); WBC 0-2 /HPF (0-5)
--- NOTE | 2024-09-16 12:22 | XRAY ---
CLINICAL HISTORY: Bilateral flank pain COMPARISON: CT dated 08/22/2024. TECHNIQUE: Non-contrast CT of the abdomen and pelvis was performed, with the following protocol: axial images, and reconstructed coronal and sagittal images. One of the following dose reduction techniques was utilized for this exam: Automated exposure control, adjustment of the mA and/or kV according to patient size, and use of iterative reconstruction. FINDINGS: Abdomen: Liver: Normal in size, shape, and density. No focal lesions, cysts, or masses were identified. Gallbladder and Biliary System: The gallbladder is surgically removed. Pancreas: Pancreatic head, body, and tail are visualized and appear normal in size and density. No pancreatic masses or calcifications were noted. Spleen: Normal in size, shape, and density. No splenic lesions or masses were identified. Appendix: The appendix is normal in size without destini appendiceal fat stranding and without an appendicolith. No evidence of appendiceal abscess or perforation. Kidneys and Adrenal Glands: The right kidney is not seen. The left kidney is normal in size, shape, and position. Cortical thickness is within normal limits. No renal calculi or hydronephrosis. A left retroaortic renal vein was noted Adrenal glands are unremarkable. Pelvis: Urinary Bladder: empty. Prostate: Normal in size and contour. No masses or abnormal thickening. Seminal Vesicles: Normal appearance without abnormal enlargement or mass. Peritoneal and Retroperitoneal Structures: No free fluid or abnormal fluid collections were identified within the abdomen or pelvis. No lymphadenopathy was noted. Bowel: The visualized bowel loops are normal in caliber and appearance. No evidence of bowel obstruction or wall thickening. Redemonstration of a few non-complicated colonic diverticulosis. Bones and Soft Tissues: Pelvic bones and soft tissues are unremarkable. No fractures or abnormal masses were identified. Moderate degenerative changes are seen in the visualized thoracolumbar spine. Osteopenia and superior endplate compressions of L2 vertebra. IMPRESSION: 1. No gross interval change in comparison with CT on 08/22/2024. 2. No acute abnormality in the abdomen. 3. Redemonstration of a few non-complicated colonic diverticulosis. 4. Status post right nephrectomy and cholecystectomy. Electronically Signed by: Diamond Nixon MD. (09/16/2024 12:19:15 EDT)
[2024-09-16 12:46] VITALS: O2SAT 97
[2024-09-16 13:19] VITALS: PULSE 67
[2024-09-16 13:36] VITALS: BP 142/109; RESP 18
[2024-09-16 14:00] LABS: Slide Review 1 YES
== END 2024-09-16 13:35 | disposition home or self-care (01) ==
LOC: ED 10:38
DX: M54.50 Low back pain, unspecified (principal); R39.15 Urgency of urination; R10.9 Unspecified abdominal pain; R07.9 Chest pain, unspecified; Z79.899 Other long term (current) drug therapy
CPT/HCPCS: 36415; 51702; 74176; 80053; 81001; 82150; 83605; 83690; 84484; 85025; 93005; 99284; 99285

== ENCOUNTER 2025-01-25 16:23 | Emergency (ER) | payer MEDICARE ==
[2025-01-25 16:37] VITALS: TEMP 98
[2025-01-25 17:21] LABS: BASOPHIL % 0.2 % (0.2-1.2); Basophil (Absolute #) 0.01 x10^3/uL (0.01-0.08); Eosinophil (Absolute #) 0.01 x10^3/uL (0.04-0.54); Hematocrit 42.0 % (40.1-51.0); Hemoglobin 13.9 g/dL (13.7-17.5); IMMATURE GRAN # 0.06 x10^3u/L (0.001-0.031); IMMATURE GRAN % 0.9 % (0.001-0.429); Lymphocyte (Absolute #) 0.61 x10^3/uL (1.32-3.57); Mean Corpuscular Hemoglobin 33.0 pg (25.7-32.2); Mean Corpuscular Hgb Concent. 33.1 g/dL (32.3-36.5); Monocyte (Absolute #) 0.38 x10^3/uL (0.30-0.82); NUCLEATED RBC # 0.00 x10^3u/L (0.00-0.012); NUCLEATED RBC % 0.0 % (0.00-0.2); Platelet Count 216 x10^3/uL (163-337); Red Blood Count 4.21 x10^6/uL (4.63-6.08); White Blood Count 6.4 x10^3/uL (4.23-9.07)
[2025-01-25 17:29] LABS: Calcium 9.6 mg/dL (8.4-10.2); Carbon Dioxide 24.0 mmol/L (22-30); Creatinine 1 1.05 mg/dL (0.66-1.25); EST GLOMERULAR FILTRATION RATE 74.5 ML/MIN; Glucose 125.0 mg/dL (74-106); Potassium 4.4 mmol/L (3.5-5.1); SGOT/AST 37.0 U/L (17-59); SGPT/ALT 21.0 U/L (0-50); Total Protein 7.9 g/dL (6.3-8.2)
[2025-01-25 17:30] LABS: INR 0.99 (0.8-3.0); PROTIME 10.8 SECONDS (9.4-12.5); PTT 23.9 SECONDS (25.1-36.5)
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
[2025-01-25] MEDS ORDERED: BUMEX 1 MG ONE (20:30)
[2025-01-25] MEDS: BUMEX 1 MG IV ONE (20:31)
[2025-01-25 23:04] VITALS: RESP 19
[2025-01-26 00:06] VITALS: BP 134/103; PULSE 68; O2SAT 95
--- NOTE | 2025-01-26 08:40 | XRAY ---
Indication: Palpitations. Comparison: May 25, 2024 Portable chest unchanged again demonstrating COPD and bibasilar discoid atelectasis/scarring. Heart not enlarged again with tortuous descending aorta. Bony thorax intact again with osteopenia, and degenerative changes. No new/acute findings.
== END 2025-01-26 | disposition home or self-care (01) ==
LOC: ED 16:23
DX: R00.2 Palpitations (principal); I11.0 Hypertensive heart disease with heart failure; I50.9 Heart failure, unspecified; Z79.899 Other long term (current) drug therapy